=== PATIENT | male | born 1995 | race Caucasian/White ===

== ENCOUNTER → 2020-03-30 | Outpatient (CLI) | payer SELFPAY | END | disposition home or self-care (01) | LOC: STAR 16:05 | PROVIDERS: ATTEND Anesthesiology | DX: Z01.812 Encounter for preprocedural laboratory examination (principal); Z20.828 Contact with and (suspected) exposure to other viral communicable diseases | CPT/HCPCS: 36415; 87635 ==

== ENCOUNTER 2020-04-04 08:07 | Day surgery (SDC) | payer SELFPAY ==
[~2020-04-04] VITALS: Ht 185.4 cm; Wt 86.4 kg
[2020-04-04 08:37] VITALS: BP 133/90
[2020-04-04] MEDS ORDERED: CHLORHEXIDINE 15 ML UDC MM STA (08:40)
[2020-04-04] MEDS ORDERED: NO MEDS PER PT (08:40)
[2020-04-04] MEDS ORDERED: LACTATED RINGERS 1,000 ML IV SCH (08:40)
[2020-04-04] MEDS ORDERED: LIDOCAINE-MPF 1%, 2ML INFIL STA (08:42)
[2020-04-04] MEDS ORDERED: LIDOCAINE-MPF 1%, 2ML ONE (08:45)
[2020-04-04] MEDS ORDERED: FENTANYL PF 100 MCG/2ML IV PRN (09:00)
[2020-04-04] MEDS ORDERED: LABETALOL 5MG/ML, 20ML IV PRN (09:00)
[2020-04-04] MEDS ORDERED: LORazepam 2 MG/ML, 1ML IVPush PRN (09:00)
[2020-04-04] MEDS ORDERED: MEPERIDINE/PF 25MG/0.5ML IVPush PRN (09:00)
[2020-04-04] MEDS ORDERED: PROMETHAZINE 25 MG/ML, 1ML IVPush PRN (09:00)
[2020-04-04] MEDS ORDERED: HYDROmorphone 1 MG/ML, 1ML INJ IVPush PRN (09:00)
[2020-04-04] MEDS ORDERED: OXYcodone 5 MG/5 ML ORAL.SOL UDC PO PRN (09:00)
[2020-04-04] MEDS ORDERED: ACETAMINOPHEN 325 MG TABLET PO PRN (09:00)
[2020-04-04] MEDS ORDERED: ALBUTEROL SULFATE 2.5 MG/3 ML NPPB PRN (09:00)
[2020-04-04] MEDS ORDERED: hydrALAzine 20 MG/ML, 1ML IV PRN (09:00)
[2020-04-04] MEDS ORDERED: FENTANYL PF 100 MCG/2ML ONE ×2 (09:16→10:32)
[2020-04-04] MEDS ORDERED: PROPOFOL 10 MG/ML, 20ML ONE (09:37)
[2020-04-04] MEDS ORDERED: SUGAMMADEX 200 MG/2 ML IVPush ONE (09:37)
[2020-04-04] MEDS ORDERED: SUCCINYLCHOLINE 20 MG/ML, 10ML ONE (09:37)
[2020-04-04] MEDS ORDERED: DEXAMETHASONE 4 MG/ML, 1ML ONE (09:37)
[2020-04-04] MEDS ORDERED: ONDANSETRON 2MG/ML, 2ML ONE (09:37)
[2020-04-04] MEDS ORDERED: ROCURONIUM 10MG/ML,5ML ONE (09:37)
[2020-04-04] MEDS ORDERED: LIDOCAINE-MPF 2% ,5ML ONE (09:38)
[2020-04-04] MEDS ORDERED: ACETAMINOPHEN 650 MG/20.3 ML UDC ONE (10:32)
[2020-04-04] MEDS ORDERED: OXYcodone 5 MG/5 ML ORAL.SOL UDC ONE (10:32)
[2020-04-04] MEDS ORDERED: ACETAMINOPHEN 325 MG TABLET ONE (10:33)
== END 2020-04-04 12:40 | disposition home or self-care (01) ==
LOC: OUT 08:07
PROVIDERS: ATTEND Otolaryngology
DX: J35.1 Hypertrophy of tonsils (principal); J34.89 Other specified disorders of nose and nasal sinuses; J35.8 Other chronic diseases of tonsils and adenoids; J34.3 Hypertrophy of nasal turbinates; R06.83 Snoring
CPT/HCPCS: 42826; 88304; J0330; J1100; J2405; J2704; J3010; J7120

== ENCOUNTER 2020-04-11 12:27 | Emergency (ER) | payer SELFPAY ==
[~2020-04-11] VITALS: Ht 185.4 cm; Wt 84.5 kg
[~2020-04-11 12:27] MED LIST: NO MEDS PER PT
[2020-04-11] MEDS ORDERED: SODIUM CHLORIDE FLUSH 10ML SYR IVF ONE (13:00)
[2020-04-11] MEDS ORDERED: SODIUM CHLORIDE 0.9% 1,000ML IVBOLUS ONE (13:00)
[2020-04-11] MEDS ORDERED: ONDANSETRON 2MG/ML, 2ML IVPush ONE (13:00)
[2020-04-11] MEDS ORDERED: ONDANSETRON 2MG/ML, 2ML ONE (13:32)
[2020-04-11 13:36] LABS: BASOPHILS % (AUTO) 0 % (0-1); EOSINOPHILS % (AUTO) 1 % (1-7); LYMPHOCYTES % (AUTO) 15 % (22-44); MEAN CORPUSCULAR HEMOGLOBIN 29.2 pg (27.5-34.5); MEAN CORPUSCULAR HGB CONC 34.5 g/dL (33.2-36.2); MEAN PLATELET VOLUME 8.5 fL (7.4-10.4); MONOCYTES % (AUTO) 8 % (2-9); NEUTROPHILS % (AUTO) 76 % (42-75); PLATELET COUNT 293 x10^3/uL (130-400); RED BLOOD COUNT 5.54 x10^6/uL (4.38-5.82); RED CELL DISTRIBUTION WIDTH 13.1 % (9.4-14.8)
[2020-04-11 13:42] LABS: MD NO
[2020-04-11 13:47] LABS: ALANINE AMINOTRANSFERASE 29 U/L (12-78); ALBUMIN 3.9 g/dL (3.4-5.0); ANION GAP 7 mmol/L (5-15); CALCIUM 9.8 mg/dL (8.5-10.1); CHLORIDE 101 mmol/L (98-107); CREATININE 1.28 mg/dL (0.7-1.3)
[2020-04-11 13:49] LABS: ALKALINE PHOSPHATASE 94 U/L (45-117); BILIRUBIN,TOTAL 0.9 mg/dL (0.2-1.0); TOTAL PROTEIN 8.6 g/dL (6.4-8.2)
[2020-04-11 14:37] LABS: MICROSCOPIC NOT IND
--- NOTE | 2020-04-11 15:12 | NUR ---
PT REFUSING PIV, ERMD NOTIFIED, PO FLUIDS PROVIDED.
--- NOTE | 2020-04-11 15:24 | NUR ---
PO FLUIDS TOLEATED WELL.
[2020-04-11 16:06] VITALS: BP 124/83
--- NOTE | 2020-04-11 16:32 | NUR ---
ERMD AT BEDSIDE TO DISCUSS POC/DISCHARGE
--- NOTE | 2020-04-11 16:45 | NUR ---
DISCHARGE INSTRUCTIONS REVIEWED
== END 2020-04-11 16:56 | disposition home or self-care (01) ==
LOC: ED 15:00
DX: K59.00 Constipation, unspecified (principal); R13.10 Dysphagia, unspecified; Z90.89 Acquired absence of other organs
CPT/HCPCS: 36415; 80053; 81003; 83735; 85025; 96361; 96374; 99283; J2405; J7030